=== PATIENT | male | born 1985 | race Caucasian/White ===

== ENCOUNTER 2017-05-05 00:48 | Emergency (ER) | payer SELFPAY ==
[2017-05-05 00:57] VITALS: BP 140/93
--- NOTE | 2017-05-05 01:23 | EDM.PDOC ---
ED HPI GENERAL MEDICAL PROBLEM - General Chief Complaint: Abdominal Pain Stated Complaint: STOMACH ISSUES Time Seen by Provider: 05/05/17 01:06 Source of Information: Reports: Old Records History Limitations: Reports: Altered Mental Status - History of Present Illness INITIAL COMMENTS - FREE TEXT/NARRATIVE: The patient walked into the ED and told admitting that he "Ate some bad lopez and needed a drip". The patient is clearly under the influence of one or more mind-altering substances, and a history is not obtainable. Additionally, it is 7 outside at this time, and the patient's hands are erythematous, suggestive of exposure, although the remainder of his physical examination is benign and his temperature is found to be 97.5. Prior medical records indicate that the patient has been seen in this ED least twice previously with bizarre behavior, including, most recently, on 03/28/2016 by me. At that time, the patient was brought in by the [employer] for medical clearance. At this time, the patient had been involved in an altercation , then was hostile with the police. He was speaking pseudo-biblically ("thou shalt", etc), which the police, who were familiar with the patient, indicated was a common presentation for him. He was found to have an elevated WBC count of 13.77, but with a 0% bandemia. His potassium was depressed at 3.2, bicarbonate depressed at 18, lactic acid elevated at 6.2, anion gap elevated at 32.2, with a BUN/Cr mildly elevated at 21/1.5. His blood glucose was mildly elevated at 168. Alcohol level was elevated at 0.19. His urine drug screen was positive for amphetamine, methamphetamine, and marijuana. He was given IV fluid , IV potassium chloride, and 2 mg Ativan to calm him down before being released to the police. Of note, while this patient has been seen in this ED many times, no labs or an ECG had been obtained from this patient prior to his 03/28/2016 visit. - Related Data Allergies Allergy/AdvReac Type Severity Reaction Status Date / Time No Known Allergies Allergy Unverified 05/05/17 00:57 Home Meds: Home Meds . [No Known Home Meds] 09/12/14 [History] Past Medical History Psychiatric History: Reports: Addiction (as per the HPI), Depression Social & Family History - Family History Family Medical History: Noncontributory - Tobacco Use Years of Tobacco use: 10 Packs/Tins Daily: 1 - Alcohol Use Alcohol Use History: Yes Days Per Week of Alcohol Use: 0 Number of Drinks Per Day: 5 Total Drinks Per Week: 0 - Recreational Drug Use Recreational Drug Use: Yes Recreational Drug Type: Reports: Marijuana/Hashish, Methamphetamine - Living Situation & Occupation Living situation: Reports: Other (States that he is homeless) ED ROS GENERAL - Review of Systems Review Of Systems: Unable To Obtain - Physical Exam Exam: See Below Exam Limited By: Altered Mental Status General Appearance: WD/WN, Mild Distress (The patient keeps his eyes clenched closed. Is primarily quiet, with occasional screaming outbursts as if startled or frightened) Ears: Normal External Exam Nose: Normal Inspection, No Blood Throat/Mouth: Normal Inspection, Normal Lips, Normal Voice, No Airway Compromise Head Exam: Atraumatic, Normocephalic Neck: Normal Inspection, Full Range of Motion Respiratory/Chest: No Respiratory Distress, Lungs Clear, Normal Breath Sounds, No Accessory Muscle Use Cardiovascular: Normal Peripheral Pulses, Regular Rate, Rhythm, No Gallop, No JVD, No Murmur, No Rub GI/Abdominal: Normal Bowel Sounds, Soft, Non-Tender, No Organomegaly, No Distention, No Abnormal Bruit, No Mass (Male) Exam: Deferred Rectal (Males) Exam: Deferred Neuro Exam (Abbreviated): Other (Moves all 4 extremities spontaneously. Does not follow commands.) Back Exam: Normal Inspection, Full Range of Motion Extremities: Normal Range of Motion, No Pedal Edema, Normal Capillary Refill, Other (Erythema to the dorsal aspect of both hands, likely due to exposure. No similar finding on the feet.) Psychiatric: Other (Unable to assess at this time) Skin Exam: Warm, Dry, Intact, Normal Color, No Rash, Other (Several scratches/ excoriations on the upper back) EKG INTERPRETATION EKG Date: 05/05/17 Time: 01:19 Rhythm: NSR Rate (Beats/Min): 91 Carver: Normal P-Wave: Present QRS: Normal ST-T: Normal QT: Normal Comparison: No Change (03/28/2016) Course - Vital Signs Last Recorded V/S: Last Vital Signs Temp 36.4 C 05/05/17 00:53 Pulse 102 H 12/24/17 00:53 Resp 18 05/05/17 00:53 BP 140/93 H 05/05/17 00:53 Pulse Ox 100 05/05/17 00:53 - Orders/Labs/Meds Orders: Active Orders 24 hr Category Date Time Status EKG Documentation Completion [RC] STAT Care 05/05/17 01:09 Active Labs: Laboratory Tests 05/05/17 05/05/17 05/05/17 Range/Units 01:06 01:06 01:27 WBC 7.39 (4.23-9.07) K/mm3 RBC 4.96 (4.63-6.08) M/mm3 Hgb 14.7 (13.7-17.5) gm/L Hct 41.4 (40.1-51.0) % MCV 83.5 (79.0-92.2) fl MCH 29.6 (25.7-32.2) pg MCHC 35.5 (32.2-35.5) g/dl RDW Std Deviation 37.9 (35.1-43.9) fL Plt Count 216 (163-337) K/mm3 MPV 9.7 (9.4-12.3) fl Neutrophils % (Manual) 65 H (40-60) % Band Neutrophils % 0 (0-10) % Lymphocytes % (Manual) 24 (20-40) % Atypical Lymphs % 0 % Monocytes % (Manual) 9 (2-10) % Eosinophils % (Manual) 2 (0.8-7.0) % Basophils % (Manual) 0 L (0.2-1.2) Platelet Estimate Adequate RBC Morph Comment Normal Sodium (136-145) mEq/L Potassium (3.5-5.1) mEq/L Chloride (98-107) mEq/L Carbon Dioxide (21-32) mEq/L Anion Gap (5-15) BUN (7-18) mg/dL Creatinine (0.7-1.3) mg/dL Est Cr Clr Drug Dosing mL/min Estimated GFR (MDRD) (>60) mL/min BUN/Creatinine Ratio (14-18) Glucose (74-106) mg/dL Lactic Acid (0.4-2.0) mmol/L Calcium (8.5-10.1) mg/dL Total Bilirubin (0.2-1.0) mg/dL AST (15-37) U/L ALT (16-63) U/L Alkaline Phosphatase (46-116) U/L Total Protein (6.4-8.2) g/dl Albumin (3.4-5.0) g/dl Globulin gm/dL Albumin/Globulin Ratio (1-2) TSH 3rd Generation (0.358-3.74) uIU/mL Urine Color Yellow (Yellow) Urine Appearance Clear (Clear) Urine pH 6.5 (5.0-8.0) Ur Specific [place] 1.010 (1.005-1.030) Urine Protein Negative (Negative) Urine Glucose (UA) Negative (Negative) Urine Ketones Negative (Negative) Urine Occult Blood Negative (Negative) Urine Nitrite Negative (Negative) Urine Bilirubin Negative (Negative) Urine Urobilinogen 0.2 (0.2-1.0) Ur Leukocyte Esterase Negative (Negative) Urine RBC Not seen (0-5) /hpf Urine WBC 0-5 (0-5) /hpf Ur Epithelial Cells Not seen (0-5) /hpf Urine Bacteria Not seen (FEW) /hpf Urine Mucus Not seen (FEW) /hpf Salicylates (2.8-20) mg/dL Urine Opiates Screen Negative (NEGATIVE) Ur Buprenorphine Scrn Negative (NEGATIVE) Ur Oxycodone Screen Negative (NEGATIVE) Urine Methadone Screen Negative (NEGATIVE) Ur Propoxyphene Screen Negative (NEGATIVE) Acetaminophen (10-30) ug/mL Ur Barbiturates Screen Negative (NEGATIVE) Ur Tricyclics Screen Negative (NEGATIVE) Ur Phencyclidine Scrn Negative (NEGATIVE) Ur Amphetamine Screen Presumptive positive H (NEGATIVE) U Methamphetamines Scrn Presumptive positive H (NEGATIVE) U Benzodiazepines Scrn Negative (NEGATIVE) U Cocaine Metab Screen Negative (NEGATIVE) U Marijuana (THC) Screen Presumptive positive H (NEGATIVE) Ethyl Alcohol (0.00) gm% 05/05/17 05/05/17 05/05/17 Range/Units 01:27 01:27 01:27 WBC (4.23-9.07) K/mm3 RBC (4.63-6.08) M/mm3 Hgb (13.7-17.5) gm/L Hct (40.1-51.0) % MCV (79.0-92.2) fl MCH (25.7-32.2) pg MCHC (32.2-35.5) g/dl RDW Std Deviation (35.1-43.9) fL Plt Count (163-337) K/mm3 MPV (9.4-12.3) fl Neutrophils % (Manual) (40-60) % Band Neutrophils % (0-10) % Lymphocytes % (Manual) (20-40) % Atypical Lymphs % % Monocytes % (Manual) (2-10) % Eosinophils % (Manual) (0.8-7.0) % Basophils % (Manual) (0.2-1.2) Platelet Estimate RBC Morph Comment Sodium 128 L (136-145) mEq/L Potassium 3.9 (3.5-5.1) mEq/L Chloride 95 L (98-107) mEq/L Carbon Dioxide 23 (21-32) mEq/L Anion Gap 13.9 (5-15) BUN 13 (7-18) mg/dL Creatinine 1.0 (0.7-1.3) mg/dL Est Cr Clr Drug Dosing 104.50 mL/min Estimated GFR (MDRD) > 60 (>60) mL/min BUN/Creatinine Ratio 13.0 L (14-18) Glucose 81 (74-106) mg/dL Lactic Acid 0.9 (0.4-2.0) mmol/L Calcium 8.9 (8.5-10.1) mg/dL Total Bilirubin 1.1 H (0.2-1.0) mg/dL AST 40 H (15-37) U/L ALT 69 H (16-63) U/L Alkaline Phosphatase 58 (46-116) U/L Total Protein 7.2 (6.4-8.2) g/dl Albumin 3.8 (3.4-5.0) g/dl Globulin 3.4 gm/dL Albumin/Globulin Ratio 1.1 (1-2) TSH 3rd Generation 0.723 (0.358-3.74) uIU/mL Urine Color (Yellow) Urine Appearance (Clear) Urine pH (5.0-8.0) Ur Specific [place] (1.005-1.030) Urine Protein (Negative) Urine Glucose (UA) (Negative) Urine Ketones (Negative) Urine Occult Blood (Negative) Urine Nitrite (Negative) Urine Bilirubin (Negative) Urine Urobilinogen (0.2-1.0) Ur Leukocyte Esterase (Negative) Urine RBC (0-5) /hpf Urine WBC (0-5) /hpf Ur Epithelial Cells (0-5) /hpf Urine Bacteria (FEW) /hpf Urine Mucus (FEW) /hpf Salicylates 0.7 L (2.8-20) mg/dL Urine Opiates Screen (NEGATIVE) Ur Buprenorphine Scrn (NEGATIVE) Ur Oxycodone Screen (NEGATIVE) Urine Methadone Screen (NEGATIVE) Ur Propoxyphene Screen (NEGATIVE) Acetaminophen 0 L (10-30) ug/mL Ur Barbiturates Screen (NEGATIVE) Ur Tricyclics Screen (NEGATIVE) Ur Phencyclidine Scrn (NEGATIVE) Ur Amphetamine Screen (NEGATIVE) U Methamphetamines Scrn (NEGATIVE) U Benzodiazepines Scrn (NEGATIVE) U Cocaine Metab Screen (NEGATIVE) U Marijuana (THC) Screen (NEGATIVE) Ethyl Alcohol 0.00 (0.00) gm% - Re-Assessments/Exams Free Text/Narrative Re-Assessment/Exam: 05/05/17 02:16 The patient's urine drug screen is positive for amphetamine, methamphetamine, and marijuana. This is likely the explanation for the patient's paranoid and somewhat psychotic behavior. His sodium is depressed at 128, however, the remainder of his workup is unremarkable. The patient's hyponatremia is likely due to low dietary sodium intake, and therefore can be corrected with oral sodium. We will offer the patient some food that contains sodium. The plan will be to keep him in the ED overnight, then discharge him in the morning. 05/05/17 06:39 The patient has been calm. He ate dinner, and has gotten up to go to the bathroom several times. I believe he is fit for discharge. Departure - Departure Time of Disposition: 06:41 Disposition: Home, Self-Care 01 Condition: Good Clinical Impression: Polysubstance abuse - Discharge Information Forms: ED Department Discharge Additional Instructions: You were seen in the emergency room, seeking help. Workup in the ER included blood work, a urinalysis, and a urine drug screen. Your sodium was found to be low at 128. Your urine drug screen was positive for amphetamine, methamphetamine, and marijuana. The remainder of your workup was unremarkable. You were given salty food to eat. We recommend that you avoid drug use. Follow-up at [facility]: Lindsay Garcia [phone] If any other problems, please do not hesitate to return to the ER. - My Orders Last 24 Hours: My Active Orders 05/05/17 01:09 EKG Documentation Completion [RC] STAT - Assessment/Plan Last 24 Hours: My Active Orders 05/05/17 01:09 EKG Documentation Completion [RC] STAT
[2017-05-05 02:11] LABS: ACETAMINOPHEN 0 ug/mL (10-30)
[2017-05-05] MEDS ORDERED: Sodium Chloride 0.9% 1,000 ML IV SCH (02:15)
== END 2017-05-05 09:45 | disposition home or self-care (01) ==
LOC: JD.ED 00:48
DX: F15.10 Other stimulant abuse, uncomplicated (principal); F12.10 Cannabis abuse, uncomplicated; E87.1 Hypo-osmolality and hyponatremia
CPT/HCPCS: 36415; 80053; 80306; 81001; 83605; 84443; 85025; 93005; 99285; G0480; 93010; 99283-25